=== PATIENT | female | born 1995 | race Caucasian/White ===

== ENCOUNTER 2018-12-17 06:00 | Inpatient (IN) | payer OTHER ==
--- NOTE | 2018-12-16 20:01 | P.HPOB ---
History of Present Illness H&P Date: 12/16/18 Chief Complaint: Induction of labor This is a 23-year-old female 1 para 0 with an estimated date of confinement of 12/09/2018, estimated gestational age of 41 and one sevenths weeks, who presents to labor and delivery for induction of labor. She admits to good movement. She denies any regular contractions. She is feeling some pressure. course has been uncomplicated. labs: Hepatitis B surface antigen-negative RPR-nonreactive Rubella-immune Blood type-be negative Antibody screen-negative HIV-nonreactive Hemoglobin-11.7 Toxoplasma-negative Random glucose-75 Quad screen-negative One hour Glucola-125 RhoGAM is given at approximately 28 weeks Group B streptococcus-negative Obstetrical history: Gynecologic history: No history of sexual transmitted diseases Social history: She is single. She works full-time in the food industry. Review of Systems Constitutional: Denies chills, Denies fever Eyes: denies blurred vision, denies pain Ears, nose, mouth and throat: Denies headache, Denies sore throat Cardiovascular: Denies chest pain, Denies shortness of breath Respiratory: Denies cough Genitourinary: Reports pelvic pain, Reports Musculoskeletal: Reports low back pain Integumentary: Denies pruritus, Denies rash Neurological: Denies numbness, Denies weakness Psychiatric: Denies anxiety, Denies depression Past Medical History Past Medical History: Asthma Past Surgical History: No Surgical Hx Reported Past Anesthesia/Blood Transfusion Reactions: No Reported Reaction Past Psychological History: No Psychological Hx Reported Smoking Status: Never smoker Past Alcohol Use History: None Reported Past Drug Use History: None Reported Medications and Allergies Home Medications Medication Instructions Recorded Confirmed Type Urs-Fguu-Uogvs Acid 12/16/18 History [-U Capsule (formulary)] Allergies Allergy/AdvReac Type Severity Reaction Status Date / Time No Known Allergies Allergy Verified 12/16/18 19:59 Exam Osteopathic Statement: *. No significant issues noted on an osteopathic structural exam other than those noted in the History and Physical/Consult. HEENT: Within normal limits Heart: Regular rate and rhythm Lungs: Clear to auscultation bilaterally Abdomen: Cervix: 2.5 cm/90%/0 station Assessment and Plan (1) Post term at 41 weeks gestation Status: Acute Code(s): O48.0 - POST-TERM ; Z3A.41 - 41 WEEKS GESTATION OF SNOMED Code(s): 11436080897694 Plan: Proceed with oxytocin induction of labor. Expectant management. Epidural anesthesia if desired.
[2018-12-17] MEDS ORDERED: CARBOPROST TROMETHAMINE 250 MCG/ML 1 ML AMP IM PRN (06:27)
[2018-12-17] MEDS ORDERED: LIDOCAINE 1% 20 ML VIAL (10MG/ML) FOR IV START INTRADERMA PRN (06:27)
[2018-12-17] MEDS ORDERED: LIDOCAINE 0.5% (PF) 5 MG/ML (50 ML SDV) SQ PRN (06:27)
[2018-12-17] MEDS ORDERED: OXYTOCIN 10 UNIT/ML 1 ML VIAL IM PRN (06:27)
[2018-12-17] MEDS ORDERED: TERBUTALINE 1 MG/ML VIAL SQ PRN (06:27)
[2018-12-17] MEDS ORDERED: METHYLERGONOVINE 0.2 MG/ML 1 ML AMP IM PRN (06:27)
[2018-12-17] MEDS ORDERED: OXYTOCIN 30 UNITS/500 ML NS 30 UNIT in SALINE 1 500ML.BAG IV SCH (06:27)
[2018-12-17 06:42] VITALS: BMI 26.9
[2018-12-17] MEDS: LACTATED RINGERS 1,000 ML IV SCH ×2 (06:44→10:01)
[2018-12-17 07:01] LABS: Basophils % (A) 0 %; Eosinophils # (A) 0.1 k/uL (0-0.7); Eosinophils % (A) 1 %; HCT 31.6 % (34.0-46.0); HGB 10.6 gm/dL (11.4-16.0); Lymphocytes # (A) 2.3 k/uL (1.0-4.8); Lymphocytes % (A) 27 %; MCH 28.6 pg (25.0-35.0); MCHC 33.7 g/dL (31.0-37.0); MCV 84.9 fL (80.0-100.0); Mean Platelet Volume 9.1; Monocytes # (A) 0.4 k/uL (0-1.0); Monocytes % (A) 4 %; Neutrophils # (A) 5.8 k/uL (1.3-7.7); Neutrophils % (A) 66 %; Platelet Count 239 k/uL (150-450); Poikilocytosis Slight; RBC 3.72 m/uL (3.80-5.40); RDW 14.1 % (11.5-15.5); WBC 8.8 k/uL (3.8-10.6)
[2018-12-17] MEDS ORDERED: BUTORPHANOL 1 MG/ML 1 ML VIAL IV PRN (08:43)
[2018-12-17] MEDS ORDERED: ROPIVACAINE 100 MG, fentaNYL (PF) 200 MCG in SODIUM CHLORIDE 0.9% 76 ML EPIDURAL ONE (11:05)
[2018-12-17] MEDS ORDERED: diphenhydrAMINE 25 MG CAP PO PRN (13:15)
[2018-12-17] MEDS ORDERED: SIMETHICONE 80 MG CHEWABLE PO PRN (13:15)
[2018-12-17] MEDS ORDERED: diphenhydrAMINE 50 MG/ML 1 ML VIAL IVP PRN ×2 (13:15)
[2018-12-17] MEDS ORDERED: HYDROCORTISONE 2.5% RECTAL CREAM 30 GM TUBE RECTAL PRN (13:15)
[2018-12-17] MEDS ORDERED: OXYTOCIN 20 UNITS/1000 ML NS 1,000 ML IV SCH (13:15)
[2018-12-17] MEDS ORDERED: LANOLIN CREAM 5 GM TUBE TOPICAL PRN (13:15)
[2018-12-17] MEDS ORDERED: WITCH HAZEL 1 EACH MED..PAD TOPICAL PRN (13:15)
[2018-12-17] MEDS ORDERED: BENZOCAINE/MENTHOL SPRAY 1 GM/SPRAY AEROSOL TOPICAL PRN (13:15)
[2018-12-17] MEDS ORDERED: ACETAMINOPHEN TAB 325 MG TAB PO PRN (13:15)
[2018-12-17] MEDS ORDERED: diphenhydrAMINE 50 MG CAP PO PRN (13:15)
[2018-12-17] MEDS ORDERED: ZOLPIDEM 5 MG TAB PO PRN (13:15)
--- NOTE | 2018-12-17 13:36 | P.PROBDLV ---
Vaginal Delivery Note - . Vaginal Delivery Note: The patient progressed to complete dilation after oxytocin induction of labor and artificial rupture membranes with clear fluid noted. She did receive epidural anesthesia. Once reaching complete, she began pushing. 's head came to a crown. With one further push, the infant's head delivered across the perineum followed by the anterior shoulder. Nose and mouth were bulb suctioned. With one further push the remainder the infant easily delivered and was placed on mother's abdomen. Cord was clamped and cut and was taken to warmer for evaluation. A viable female was noted with scores of 8 at 1 minute and 9 at 5 minutes and infant weight of 8 pounds 2.5 ounces. Placenta delivered shortly thereafter, intact, with a three-vessel cord. Uterus contracted well after oxytocin was given and uterine massage was carried out. Inspection of the perineum revealed a second-degree perineal laceration. As area was anesthetized with 1% lidocaine and then sutured with 3-0 and 2-0 Vicryl suture in the usual multilayer fashion. Estimated blood loss is approximately 150 mL's. Both mother and are in stable condition.
[2018-12-17] MEDS ORDERED: DIPH,PERTUS(ACELL)TETVAC-LF 0.5 ML VIAL IM ONE (16:46)
[2018-12-17] MEDS ORDERED: INFLUENZA VACCINE (6 MOS+) 60 MCG/0.5 ML SYRINGE IM ONE (16:47)
[2018-12-17] MEDS ORDERED: Rhogam IMMUNE GLOBULIN 1,500 UNIT/1 ML IM ONE (17:56)
[2018-12-17] MEDS: SENNOSIDES-DOCUSATE SODIUM 1 EACH TAB PO SCH (19:46)
[2018-12-17] MEDS: IBUPROFEN 600 MG TAB PO PRN (19:46)
[2018-12-18 07:29] LABS: Basophils % (A) 0 %; Eosinophils # (A) 0.1 k/uL (0-0.7); Eosinophils % (A) 1 %; HCT 30.5 % (34.0-46.0); Hypochromasia Slight; Lymphocytes % (A) 18 %; MCH 28.4 pg (25.0-35.0); MCHC 32.9 g/dL (31.0-37.0); MCV 86.4 fL (80.0-100.0); Mean Platelet Volume 9.3; Monocytes # (A) 0.5 k/uL (0-1.0); Monocytes % (A) 4 %; Neutrophils # (A) 8.1 k/uL (1.3-7.7); Neutrophils % (A) 75 %; Platelet Count 244 k/uL (150-450); Poikilocytosis Slight; RBC 3.53 m/uL (3.80-5.40); RDW 14.3 % (11.5-15.5); WBC 10.8 k/uL (3.8-10.6)
[2018-12-18] MEDS: IBUPROFEN 600 MG TAB PO PRN ×2 (08:00→15:58)
[2018-12-18] MEDS: SENNOSIDES-DOCUSATE SODIUM 1 EACH TAB PO SCH ×2 (08:00→19:25)
--- NOTE | 2018-12-18 08:59 | P.PNOBGVD ---
Subjective - Subjective Principal diagnosis: Status post vaginal delivery day #1 Interval history: Patient is doing okay. She is breast-feeding. Lochia is decreasing. Her pain is fairly well controlled. She would like to stay another night to work on breast-feeding and education. Patient reports: Reports appetite normal, Reports voiding normally, Reports pain well controlled, Reports ambulating normally [place]: doing well, nursing well Objective - Latest Vital Signs Latest vital signs: Vital Signs Temp Pulse Resp BP Pulse Ox 12/18/18 08:00 98.4 F 71 16 124/69 99 12/18/18 00:00 97.9 F 70 16 123/76 12/17/18 20:00 98.4 F 80 16 139/93 12/17/18 16:00 98.0 F 86 18 121/78 12/17/18 15:05 97.1 F L 71 18 134/92 12/17/18 14:35 81 138/84 12/17/18 14:05 97.1 F L 75 18 131/87 12/17/18 13:50 83 125/82 12/17/18 13:35 97.0 F L 80 18 126/86 12/17/18 13:20 97.2 F L 78 18 127/71 12/17/18 13:05 97.2 F L 79 18 137/98 Intake and Output 12/17/18 12/18/18 12/18/18 22:59 06:59 14:59 Other: # Voids 1 1 - Exam Extremities: Present: normal. Absent: tenderness Abdomen: Present: normal appearance, soft. Absent: distention, tenderness Uterus: Present: normal, firm. Absent: tenderness - Labs Labs: Abnormal Lab Results - Last 24 Hours (Table) 12/18/18 Range/Units 06:49 WBC 10.8 H (3.8-10.6) k/uL RBC 3.53 L (3.80-5.40) m/uL Hgb 10.0 L (11.4-16.0) gm/dL Hct 30.5 L (34.0-46.0) % Neutrophils # 8.1 H (1.3-7.7) k/uL Assessment and Plan Assessment: Status post vaginal delivery day #1 (1) Post term at 41 weeks gestation Current Visit: No Status: Acute Code(s): O48.0 - POST-TERM ; Z3A.41 - 41 WEEKS GESTATION OF SNOMED Code(s): 30658326116447 Plan: Continue with care today. Anticipate discharge home tomorrow.
[2018-12-19] MEDS: IBUPROFEN 600 MG TAB PO PRN (05:14)
--- NOTE | 2018-12-19 07:55 | P.DS ---
Providers Date of admission: 12/17/18 06:20 Expected date of discharge: 12/19/18 Attending physician: Kristen Morales Primary care physician: Stated None - Discharge Diagnosis(es) (1) Post term at 41 weeks gestation Current Visit: No Status: Acute Hospital Course: This is a 23-year-old female 1 para 0 at 41 and one sevenths weeks who presented for induction of labor. She underwent oxytocin induction of labor and delivered vaginally a viable female infant with scores of 8 at 1 minute and 9 at 5 minutes and weight of 8 pounds 2-1/2 ounces. Her course was essentially uncomplicated. Lochia has decreased. Pain is fairly well controlled. She is working on breast-feeding. Vital signs are stable. Abdomen is soft with fundus firm and nontender. Extremities show negative Homans. Impression is status post vaginal delivery day #2. Plan is to discharge home today. Routine instructions are given. She will be given a prescription for ibuprofen and a breast pump. She is advised to follow up in the office in 6 weeks for check. She is advised to call the office if she has any further questions or concerns prior to her appointment time. Procedures: Oxytocin induction of labor Spontaneous vaginal delivery of a viable female infant on 12/17/2018. Patient Condition at Discharge: Stable Plan - Discharge Summary New Discharge Prescriptions: New Ibuprofen [Motrin] 600 mg PO Q6HR PRN #60 tab PRN Reason: Mild Pain Or Fever >= 100.5 Discharge Medication List Ibuprofen [Motrin] 600 mg PO Q6HR PRN #60 tab 12/19/18 [Rx] Follow up Appointment(s)/Referral(s): Kristen Morales DO [Doctor of Osteopathic Medicine] - 6 Weeks Activity/Diet/Wound Care/Special Instructions: Instructions 1. Do not begin any exercise program for 3 weeks. 2. Do not resume sexual relations for 3 weeks or longer if uncomfortable. 3. You may take tub baths or showers at any time. 4. You may use tampons if desired after 3 weeks. 5. Keep the area of episiotomy (stitches) clean and dry. 6. If you are not nursing, wear a good fitting, supportive bra during the day and limit fluid intake for at least 1 week to prevent breast engorgement. 7. Call the office, [phone], within the next week to make appointment for your 6 week checkup if it has not already been made. 8. Report any of the following occurrences to the doctor promptly: a. Heavy, excessive bleeding b. Chills, fever c. Burning or frequency of urination d. Pain or redness and breasts if nursing e. Increasing pain or swelling in episiotomy (stitches). In addition to the above instructions, the following additional should be followed: 1. No heavy lifting or straining (exercising) until after 6 week checkup. 2. Keep abdominal incision clean and dry: You may wear a dressing if more comfortable. 3. Make office appointment for 10 days after going home or as instructed by her doctor. Discharge Disposition: HOME SELF-CARE
[2018-12-19 09:19] VITALS: BP 133/75; PULSE 79; RESP 20; TEMP 98.4
== END 2018-12-19 15:30 | disposition home or self-care (01) | DRG 807 ==
LOC: 4FBP 06:20
PROVIDERS: ADMIT Obstetrics & Gynecology; ATTEND Obstetrics & Gynecology
PROC: 10E0XZZ Delivery of Products of Conception, External Approach (ICD-10-PCS; principal; 2018-12-17)
PROC: 0KQM0ZZ Repair Perineum Muscle, Open Approach (ICD-10-PCS; 2018-12-17)
PROC: 10907ZC Drainage of Amniotic Fluid, Therapeutic from Products of Conception, Via Natural or Artificial Opening (ICD-10-PCS; 2018-12-17)
PROC: 3E033VJ Introduction of Other Hormone into Peripheral Vein, Percutaneous Approach (ICD-10-PCS; 2018-12-17)
PROC: 00HU33Z Insertion of Infusion Device into Spinal Canal, Percutaneous Approach (ICD-10-PCS; 2018-12-17)
PROC: 3E0R3BZ Introduction of Anesthetic Agent into Spinal Canal, Percutaneous Approach (ICD-10-PCS; 2018-12-17)
DX: O48.0 Post-term pregnancy (principal); Z37.0 Single live birth; O99.52 Diseases of the respiratory system complicating childbirth; J45.909 Unspecified asthma, uncomplicated; O70.1 Second degree perineal laceration during delivery; Z3A.41 41 weeks gestation of pregnancy
CPT/HCPCS: 85025; 85461; 86850; 86870; 86880; 86900; 86901; 88307; 90686; 90715

== ENCOUNTER 2019-07-21 01:45 | Emergency (ER) | payer OTHER ==
[2019-07-21] MEDS ORDERED: DIPH,PERTUS(ACELL)TETVAC-LF 0.5 ML VIAL IM ONE (01:47)
[2019-07-21] MEDS ORDERED: ceFAZolin 1,000 MG VIAL (IM USE) IM STA (01:47)
[2019-07-21] MEDS ORDERED: LIDOCAINE 1% INJ 10MG/ML (20 ML MDV) SQ ONE (02:24)
--- NOTE | 2019-07-21 02:28 | XR ---
EXAMINATION TYPE: XR hand complete RT DATE OF EXAM: 07/21/2019 COMPARISON: NONE HISTORY: Laceration. Pain TECHNIQUE: 2 views FINDINGS: There is soft tissue mild deformity of the fourth and fifth fingers at the PIP joints consi stent with laceration. I see no fracture nor dislocation. There is no sign of radiopaque foreign body . IMPRESSION: Laceration deformity. No fracture seen.
[2019-07-21] MEDS ORDERED: ALPRAZolam 0.5 MG TAB PO STA (02:43)
--- NOTE | 2019-07-21 03:27 | ED ---
Upper Extremity HPI - General Chief Complaint: Extremity Injury, Upper Stated Complaint: hand lac Time Seen by Provider: 07/21/19 01:47 Source: patient Mode of arrival: EMS Limitations: no limitations - History of Present Illness Initial Comments: 23-year-old female presenting today for chief complaint of right 3 digit laceration. Patient states she attempted to put a serrated large kitchen knife into the knife holding block when she missed cutting digits 3-5, she states she cannot flex digits 4/5 and has full ROM and strength of digit 3. Patient states she saw all the blood and called EMS for transport/ Patient has no additional complaints or area of injury. Last tetanus a year ago. Patient states her sensation of digit #5 is slightly diminished in comparison with the rest of the digits. - Related Data Previous Rx's Medication Instructions Recorded Ibuprofen [Motrin] 600 mg PO Q6HR PRN #60 tab 12/19/18 Cephalexin [Keflex] 500 mg PO Q6HR 7 Days #28 cap 07/21/19 Allergies Allergy/AdvReac Type Severity Reaction Status Date / Time No Known Allergies Allergy Verified 07/21/19 01:52 Review of Systems ROS Statement: Those systems with pertinent positive or pertinent negative responses have been documented in the HPI. ROS Other: All systems not noted in ROS Statement are negative. Past Medical History Past Medical History: Asthma, Musculoskeletal Disorder Additional Past Medical History / Comment(s): Had a fracture in L1 when she was 16 yo History of Any Multi-Drug Resistant Organisms: None Reported Past Surgical History: No Surgical Hx Reported Past Anesthesia/Blood Transfusion Reactions: No Reported Reaction Past Psychological History: No Psychological Hx Reported Smoking Status: Current some day smoker Past Alcohol Use History: Occasional Past Drug Use History: Marijuana - Past Family History Father Family Medical History: No Reported History General Exam - General Exam Comments Initial Comments: General: The patient is awake and alert, in no distress Eye: +3 mm pupils are equal, round and reactive to light, extra-ocular movements are intact. No nystagmus. There is normal conjunctiva bilaterally. No signs of icterus. Cardiovascular: There is a regular rate and rhythm. No murmur, rub or gallop is appreciated. Respiratory: Lungs are clear to auscultation, respirations are non-labored, breath sounds are equal. No wheezes, stridor, rales, or rhonchi. Gastrointestinal: Soft, non-distended, non-tender abdomen without masses or organomegaly noted. There is no rebound or guarding present. Musculoskeletal: There is 2.5cm laceration of digits 4,5 on the ventral aspect just distal to the MCP joint. forced extended position of the digit 4,5. Patient digit #3 has full ROm no limitation in strength. All 5 digits has <2 second capillary refill distally, (distal to the laceration of the affected digits). Sensation intact Radial pulses equal bilaterally 2+. Neurological: A&O x 3. CN II-XII intact grossly, There are no obvious motor or sensory deficits. Coordination appears grossly intact. Speech is normal. Skin: Skin is warm and dry and no rashes or lesions are noted. Psychiatric: Cooperative, appropriate mood & affect, normal judgment. Limitations: no limitations Course Vital Signs 07/21/19 07/21/19 01:53 03:39 Temperature 98.1 F 97.0 F L Pulse Rate 88 64 Respiratory 18 17 Rate Blood Pressure 104/64 100/64 O2 Sat by Pulse 96 97 Oximetry Medical Decision Making - Medical Decision Making 23yo male presenting today for cc of finger laceration. Laceration extensively irrigated. Wound edges loosely approximated. Kefzol given. Tetanus is UTD. XR (- ) for fracture, obvious digit 4/5 dlexor tendon laceration. Patient is vascul moy intact. States sensation slightly more dull distal to digit 5. reading aide orthopedic surgery Dr. Sandoval consulted, he is agreeable to current care and recommends discharge with splint and hand surgery f/u on Monday. Family is to call early Monday morning to arrange f/u and further surgical care. Patient is right handed. Patient provided keflex for infection prophylaxis. Patient discharged appearing well. Discussed case wt Dr. Geiger who is agreeable to care plan. Disposition Clinical Impression: Finger laceration involving tendon Disposition: HOME SELF-CARE Condition: Good Instructions (If sedation given, give patient instructions): Finger Laceration (ED), Tendon Laceration (ED) Additional Instructions: Please use medication as discussed. Please follow-up with hand surgeon on Monday as discussed- call office in the morning be sure to mention seen in ER for TENDON LACERATION OF FINGERS 4/5. Please return to emergency room if the symptoms increase or worsen or for any other concerns. Prescriptions: Cephalexin [Keflex] 500 mg PO Q6HR 7 Days #28 cap Is patient prescribed a controlled substance at d/c from ED?: No Referrals: Gregor Pham MD [Primary Care Provider] - 1-2 days Mehdi Mosley DO [Medical Doctor] - 1-2 days Time of Disposition: 03:26
[2019-07-21] MEDS ORDERED: ACET/COD 300 MG/30 MG STARTER PACK 6 TAB BTL PO STA (03:35)
[2019-07-21 03:47] VITALS: BP 100/64; PULSE 64; RESP 17; TEMP 97
== END 2019-07-21 03:47 | disposition home or self-care (01) ==
LOC: EC 01:45
DX: S66.124A Laceration of flexor muscle, fascia and tendon of right ring finger at wrist and hand level, initial encounter (principal); S66.126A Laceration of flexor muscle, fascia and tendon of right little finger at wrist and hand level, initial encounter; S61.212A Laceration without foreign body of right middle finger without damage to nail, initial encounter; F17.200 Nicotine dependence, unspecified, uncomplicated; W26.0XXA Contact with knife, initial encounter; Y92.000 Kitchen of unspecified non-institutional (private) residence as the place of occurrence of the external cause
CPT/HCPCS: 99283; 12001; 96372; 73130; J0690; J2001

== ENCOUNTER → 2019-07-24 | Outpatient (CLI) | payer OTHER | END | disposition home or self-care (01) | LOC: LABWHC1 12:50 | PROVIDERS: ATTEND Orthopaedic Surgery | DX: U07.1 COVID-19 (principal) ==

== ENCOUNTER 2019-07-26 11:07 | Day surgery (SDC) | payer OTHER ==
[2019-07-25 11:05] VITALS: BMI 23.3
[~2019-07-26 11:07] MED LIST: DEXAMETHASONE SOD PHOSPHATE 10 MG/ML 1 ML VIAL IV ONE; LACTATED RINGERS 1,000 ML IV ONE; MIDAZOLAM 2 MG/2 ML VIAL IV PRN; SCOPOLAMINE 1.5MG/72HR PATCH TRANSDERM ONE
[2019-07-26] MEDS: ONDANSETRON 4 MG/2 ML VIAL IVP ONE (11:42)
[2019-07-26] MEDS ORDERED: LIDOCAINE 1% (10MG/ML) FOR IV START INTRADERMA ONE (11:42)
[2019-07-26] MEDS: LACTATED RINGERS 1,000 ML IV SCH (11:42)
[2019-07-26] MEDS ORDERED: HEPARIN SODIUM,PORCINE 5,000 UNIT/ML 1 ML VIAL ONE (13:07)
[2019-07-26] MEDS ORDERED: LIDOCAINE 2%-EPI 1:100,000 20 ML VIAL ONE (13:07)
[2019-07-26] MEDS ORDERED: MIDAZOLAM 2 MG/2 ML VIAL ONE (13:07)
[2019-07-26] MEDS ORDERED: SUCCINYLCHOLINE CHLORIDE 100 MG/5 ML SYR IV ONE (13:07)
[2019-07-26] MEDS ORDERED: ceFAZolin 1,000 MG VIAL IVPB ONE (13:07)
[2019-07-26] MEDS ORDERED: ONDANSETRON 4 MG/2 ML VIAL ONE (13:07)
[2019-07-26] MEDS ORDERED: PROPOFOL 10 MG/ML 20 ML VIAL IV ONE (13:07)
[2019-07-26] MEDS ORDERED: PHENYLEPHRINE-0.9% NACL SYG 1 MG/10 ML SYRINGE ONE (13:07)
[2019-07-26] MEDS ORDERED: fentaNYL (PF) 50 MCG/ML 2 ML AMP ONE (13:07)
[2019-07-26] MEDS ORDERED: LIDOCAINE 1% INJ 10MG/ML (20 ML MDV) ONE (13:07)
[2019-07-26] MEDS ORDERED: LACTATED RINGERS 1,000 ML IV ONE (17:08)
[2019-07-26] MEDS ORDERED: TERBUTALINE 1 MG/ML VIAL SQ STA (18:42)
[2019-07-26] MEDS ORDERED: CEFAZOLIN IV ONE ×2 (19:30)
[2019-07-26] MEDS ORDERED: SODIUM CHLORIDE 0.9% IV ONE ×2 (19:30)
[2019-07-26] MEDS ORDERED: SODIUM CHLORIDE 0.9% 500 ML 500 ML with HEPARIN SODIUM,PORCINE 5,000 UNIT IV ONE ×2 (20:35)
[2019-07-27] MEDS: HYDROmorphone 0.5 MG/0.5 ML SYRINGE IVP PRN ×2 (01:04→01:10)
[2019-07-27] MEDS ORDERED: ONDANSETRON 4 MG/2 ML VIAL IVP PRN (01:11)
[2019-07-27] MEDS ORDERED: HYDROcodone/APAP 5-325MG 1 EACH TAB PO PRN ×2 (01:11)
[2019-07-27] MEDS: ONDANSETRON 4 MG/2 ML VIAL IVP ONE (01:38)
[2019-07-27] MEDS: MORPHINE SULFATE 4 MG/ML SYRINGE IV PRN ×2 (02:45→07:28)
[2019-07-27 03:26] LABS: Mean Platelet Volume 8.4; Platelet Count 220 k/uL (150-450)
[2019-07-27] MEDS ORDERED: HEPARIN SODIUM,PORCINE 5,000 UNIT/ML 1 ML VIAL SQ SCH (08:00)
[2019-07-27 08:24] VITALS: BP 105/63; PULSE 89; RESP 18; TEMP 98.4
[2019-07-27] MEDS: LACTATED RINGERS 1,000 ML IV SCH (08:25)
[2019-07-27] MEDS ORDERED: ASPIRIN 325 MG TAB PO SCH (09:00)
--- NOTE | 2019-07-28 18:56 | P.OP ---
Date of Procedure: 07/26/19 Preoperative Diagnosis: 1. Traumatic right ring and small finger lacerations 2. Laceration of the right ring finger flexor digitorum superficialis (FDS) and flexor digitorum profundus (FDP) tendons - Zone 2. 3. Laceration of the right small finger flexor digitorum superficialis (FDS) and flexor digitorum profundus (FDP) tendons - Zone 2. 4. Right small finger ulnar digital nerve injury. Postoperative Diagnosis: 1. Traumatic right ring and small finger lacerations. 2. Traumatic right small finger proximal interphalangeal (PIP) joint arthrotomy with complete transection of the volar plate. 3. Complete laceration of the right ring finger flexor digitorum superficialis (FDS) and flexor digitorum profundus (FDP) tendons - Zone 2. 4. Complete laceration of the right small finger flexor digitorum superficialis (FDS) and flexor digitorum profundus (FDP) tendons - Zone 2. 5. Partial laceration of right ring finger ulnar digital nerve. 6. Complete laceration of right small finger radial and ulnar neurovascular bundles. Procedure(s) Performed: 1. Exploration of right ring and small finger lacerations. 2. Irrigation and debridement of right small finger traumatic proximal interphalangeal (PIP) joint arthrotomy with repair of volar plate. 3. Primary repair of right ring finger flexor digitorum superficialis (FDS) and flexor digitorum profundus (FDP) tendons - Zone 2. 4. Primary repair of right ring finger flexor digitorum superficialis (FDS) and flexor digitorum profundus (FDP) tendons - Zone 2. 5. Repair of right small finger radial digital artery laceration with reversed vein graft. 6. Primary repair of partial laceration of right ring finger ulnar digital nerve. 7. Primary repair of complete laceration of right small finger radial and ulnar digital nerves. Anesthesia: GETA, local Surgeon: Mehdi Mosley Estimated Blood Loss (ml): 10 Condition: stable Disposition: PACU Indications for Procedure: The patient is a very pleasant 23-year-old female who sustained traumatic lacerations to her right middle, ring and small fingers while washing a serrated kitchen knife. Examination revealed findings consistent with traumatic flexor tendon and digital nerve lacerations. Treatment options were discussed in the office: exploration with tendon and nerve repair was recommended. Risks and benefits were discussed in detail, as well as the lengthy postoperative recovery course and need for extended splinting, activity restrictions and regular participation in hand therapy. The patient expressed understanding, willingness to accept these risks and agreed with operative treatment. In preop, additional questions were answered and the patient wished to proceed with surgery as planned. Consent forms were signed. The surgical sites were confirmed and marked preoperatively. Description of Procedure: After consent was obtained, lidocaine with epinephrine was injected around the planned incision/surgical sites in preop, using aseptic technique. After an appropriate interval of time, the patient was brought to the OR and positioned supine with the operative limb on a hand table. Anesthesia was administered uneventfully. The right upper extremity was then prepped and draped in standard, sterile fashion. A time-out was performed, confirming patient identifiers, the operative side, the sites and the procedures to be performed: all team members expressed agreement. Loupe magnification was utilized throughout the case for optimum visualization. The traumatic wounds were sharply extended along the ulnar midaxial lines and distally in a Terrence fashion. Full-thickness skin flaps were elevated and the wounds were explored. No gross purulence or foreign matter was identified. Ring finger: The neurovascular bundles were identified: the radial bundle appeared uninjured. There was a partial laceration of the ulnar digital nerve: the dorsal fascicles were intact but there was a small defect volarly. Both flexor tendons were completely transected and the proximal stumps were not initially visible. The distal stump of the FDP tendon was bunched up distal to the A4 chelsea. The FDS tendon was transected at Campers chiasm. Small finger: Both neurovascular bundles were found to be completely transected, including the digital vessels and nerves. The digit actually demonstrated very good perfusion preoperatively, despite no identifiable intact digital vessels. Both flexor tendons were completely transected and the proximal stumps were not initially visible.The FDP tendon was transected quite distally but could be delivered through the A4 chelsea with full DIP flexion. The FDS tendon was lacerated just distal to Campers chiasm. The knife also transversely lacerated the entire volar plate, creating a traumatic arthrotomy without obvious osseous or articular injury. The joint and wounds were copiously irrigated with normal saline and a bulb syringe. The small finger volar plate was repaired with 3-0 Monocryl, with the knots buried within the substance of the plate. Attention was turned to the tendon repairs. The wrist was flexed and the forearm and hand were milked to help deliver the tendons. A curved tendon grasper was inserted into the flexor sheath of both fingers: the proximal FDS and FDP stumps were retrieved easily, pulled distally and pinned in placed with a 25-gauge needle inserted through the A2 chelsea. The tendons were cut fairly cleanly and did not require further trimming. The ring finger was approached first. In the FDS, a 4-strand core suture repair was performed with 4-0 FiberWire using a cruciate stitch. This was reinforced with a running 6-0 Prolene epitendinous stitch (volar only). Excellent approximation of the tendon ends was achieved without bunching. The distal FDP stump could not be passed back under the chelsea, even after sequential dilation. Sutures were passed into the proximal stump (3-0 FiberWire using a locked cruciate stitch). The sutures were passed under the A4 chelsea and the tendon was pulled through distally and the repair was completed. An additional Mackay stitch was placed to create a 6-strand repair. This was reinforced with a locked, running epitendinous stitch of 6-0 Prolene. The repair was not overly bulky but still could not pass under the chelsea, even after venting the distal corners. The chelsea was released in a step-cut fashion. Attempts to reconstruct the chelsea in a lengthened fashion still caused focal restriction that precluded free tendon gliding and the decision was made to not repair it. Attention was turned to the small finger: The FDS slips were quite small and could only accommodate a 2-strand repair with 4-0 Fiberwire and a modified Mackay stitch. This afforded a fairly strong repair. The FDP tendon was repaired with 4-0 Fiberwire using a cruciate stitch and a supplementary horizontal mattress, creating a 6-strand core suture repair, reinforced with a locked, running cross-stitch epitendinous 6-0 Prolene suture. Both tendon repairs showed good approximation. The repairs demonstrated no gapping with passive wrist/digital motion or with traction applied to the tendons proximally. The normal digital cascade was restored. The tourniquet was released after 77 minutes at 150 mmHg while attention was then turned to the digital nerves. Using microsurgical instruments, the nerve ends were exposed and mobilized. The traumatized ends of the severed nerves were sharply revised with an 11-blade. A direct epineural repair was performed for each nerve, using simple 9-0 Nylon sutures. The small defect in the superficial fascicles of the ring finger ulnar digital nerve was repaired primarily in a similar fashion. All repairs showed good approximation without tension. After repairs were completed, the perfusion of the small finger was noted to be considerably diminished. It showed marked pallor (when compared to the ring finger) with no distally capillary refill. Terbutaline (1mg/ml) was mixed with normal saline and a 1:1 ratio. This was injected into the subcutaneous tissues of both digits (evenly distributed at the A1 pulleys, proximal and middle phalanges) to reverse the effects of the epinephrine. The digits were then wrapped with gauze soaked in warm saline. The perfusion did not significantly improve and the decision was made to proceed with arterial repair. The operative microscope was brought in to evaluate for possible vascular repair. No viable distal vessel was identified on the ulnar aspect of the digit. The radial digital artery was identified but demonstrated a segmental defect (likely caused by the serrated blade from the initial trauma). The proximal and distal portions of the radial digital artery were carefully dissected free and mobilized for repair. The lacerated radial artery was mobilized to perform a direct anastomosis. The adventitia was carefully removed from both artery segments. The vessel ends were sharply revised. The lumens were carefully dilated and flushed with heparinized saline. Good flow through the proximal vessel was achieved. The anastomosis was performed with 10-0 Prolene sutures. However, due to the residual tension from the defect and the poor quality of the distal artery, the repair would not hold. Digital perfusion was still poor and the decision was made to proceed with vein grafting. The tourniquet was reinflated. A small transverse incision was made in the volar wrist and a superficial vein was isolated, dissected free and resected. The graft was reversed and positioned between the arterial segments. The graft segment and proximal artery were flushed with heparinized saline. The proximal anastomosis was performed first. Once completed, the tourniquet was again released (after 44 minutes). There was good flow through the proximal artery but only sluggish flow through the graft. The distal anastomosis was then completed. The was no leaking at either anastomosis. Though flow through the graft was not robust, perfusion of the digit did appear improved. All wounds were thoroughly irrigated with normal saline. The incisions and traumatic wounds were closed with interrupted 5-0 Nylon sutures. A soft, sterile dressing of Adaptec, fluffs and Webril was applied, followed by a plaster dorsal-blocking splint with the wrist in ~20 of flexion and the MCP joints flexed. All sponge, needle and instrument counts were correct at the end of the case. The patient tolerated the procedure well and was transferred to recovery in stable condition.
--- NOTE | 2019-07-28 19:01 | P.PN ---
Subjective Progress Note Date: 07/27/19 She reports some throbbing in the hand and soreness in the thumb. States that the pain level is manageable and well-controlled with medication. She denies nausea or vomiting. Denies other issues or concerns. Objective - Vital Signs Vital signs: Vital Signs Temp 98.4 F 07/27/19 08:00 Pulse 89 07/27/19 08:00 Resp 18 07/27/19 08:00 BP 105/63 07/27/19 08:00 Pulse Ox 98 07/27/19 08:00 Intake & Output 07/26/19 07/27/19 07/27/19 18:59 06:59 18:59 Intake Total 1700 351 Output Total 800 Balance 1700 -449 Weight 63 kg 63 kg Intake: IV 1700 351 Output: Urine 800 Other: Voiding Method Toilet - Exam The splint is in place. Mild bloody shadowing at the periphery of the dressings. Both digits are pink and warm. Mild vascular congestion of the pulp of the small finger but excellent perfusion to the dorsal and lateral aspects of the digit with brisk capillary refill. - Labs CBC & Chem 7: 07/27/19 03:10 Assessment and Plan Assessment: Postoperative day #0 status post repair of right ring and small finger FDS and FDP tendons with digital nerve repairs and repair of small finger radial digital artery. Plan: I discussed the clinical and intraoperative findings in detail with the patient. The fingers are doing well. She will be discharged home on a short course of oral antibiotics. Continue elevation. No ice. Begin daily b.i.d. aspirin. She was given instructions on activity restrictions and postoperative care. DC home. Follow up in office early next week.
== END 2019-07-27 12:59 | disposition home or self-care (01) ==
LOC: OR 11:07 → 1SOBS 07-27 02:09 → OR 07-27 12:59
PROVIDERS: ATTEND Orthopaedic Surgery
DX: S61.214A Laceration without foreign body of right ring finger without damage to nail, initial encounter (principal); S61.216A Laceration without foreign body of right little finger without damage to nail, initial encounter; S66.124A Laceration of flexor muscle, fascia and tendon of right ring finger at wrist and hand level, initial encounter; S66.126A Laceration of flexor muscle, fascia and tendon of right little finger at wrist and hand level, initial encounter; S64.494A Injury of digital nerve of right ring finger, initial encounter; S64.496A Injury of digital nerve of right little finger, initial encounter; S61.212A Laceration without foreign body of right middle finger without damage to nail, initial encounter; J45.990 Exercise induced bronchospasm; Z79.891 Long term (current) use of opiate analgesic; Z97.3 Presence of spectacles and contact lenses; Z86.69 Personal history of other diseases of the nervous system and sense organs; Z98.890 Other specified postprocedural states; W26.0XXA Contact with knife, initial encounter; Y93.G1 Activity, food preparation and clean up
CPT/HCPCS: 26548; 26356 ×2; 26370 ×2; 35236; 64831; 64832; 81025; 85049; J2250 ×2; J2270; J3105; J1644 ×2; J1100; J0690 ×2; J2405 ×2; J2001; J3010; J2370; J0330; J2704; J1170